=== PATIENT | female | born 1975 ===

== ENCOUNTER 2021-02-02 20:55 | Emergency (ER) | payer SELFPAY ==
[2021-02-02 23:58] LABS: Basophils # (Auto) 0.1 K/mm3 (0.0-0.1); Basophils % (Auto) 0.5 % (0.0-1.8); Eosinophils # (Auto) 0.1 K/mm3 (0.0-0.4); Eosinophils % (Auto) 0.7 % (0.0-4.3); Hematocrit 21.9 % (30.3-42.9); Hemoglobin 6.9 gm/dl (10.1-14.3); Lymphocytes # (Auto) 3.1 K/mm3 (1.2-5.4); Lymphocytes % (Auto) 26.5 % (13.4-35.0); Mean Corpuscular HGB Conc 32 % (30-34); Monocytes # (Auto) 0.8 K/mm3 (0.0-0.8); Monocytes % (Auto) 6.9 % (0.0-7.3); Platelet Count 422 K/mm3 (140-440); Red Blood Count 3.29 M/mm3 (3.65-5.03); Red Cell Distribution Width 18.2 % (13.2-15.2)
[2021-02-02 23:59] LABS: Mean Corpuscular Volume 67 fl (79-97)
[2021-02-03 00:11] LABS: Blood Urea Nitrogen 7 mg/dL (7-17); Calcium 8.4 mg/dL (8.4-10.2); Hemolysis Index 0
[2021-02-03 00:41] LABS: BUN/Creatinine Ratio 12
--- NOTE | 2021-02-03 06:38 | Emergency Department Report ---
ED Female HPI - General Chief complaint: Vaginal Bleeding Stated complaint: HEAVY BLEEDING Time Seen by Provider: 02/03/21 06:09 Source: patient Mode of arrival: Ambulatory Limitations: No Limitations - History of Present Illness Initial comments: 45-year-old female presents to the hospital complaining of vaginal bleeding x2 weeks. She uses approximately 10 pads per day. She has had intermittent back pain. Complains of mild dizziness without dyspnea on exertion. She has a history of iron deficiency anemia but noncompliant with iron tablets because they had made her vomit in the past. Denies previous history of blood transfusion or known fibroids. MANNEQUIN MOUNTER: "practice across the street" name unknown - Related Data Previous Rx's Medication Instructions Recorded Last Taken Type Docusate Sodium [Colace] 100 mg PO BID PRN #20 capsule 02/03/21 Unknown Rx Ferrous Sulfate [Ferrous Sulfate 324 mg PO DAILY #20 tablet. 02/03/21 Unknown Rx 324 MG] Ibuprofen [Motrin] 800 mg PO Q8HR PRN #20 tablet 02/03/21 Unknown Rx Ondansetron [Zofran Odt] 4 mg PO Q8HR PRN #20 tab.rapdis 02/03/21 Unknown Rx medroxyPROGESTERone ACETATE 10 mg PO DAILY #10 tablet 02/03/21 Unknown Rx [Provera] Allergies Allergy/AdvReac Type Severity Reaction Status Date / Time No Known Allergies Allergy Verified 02/02/21 22:00 ED Review of Systems ROS: Stated complaint: HEAVY BLEEDING Other details as noted in HPI Comment: All other systems reviewed and negative ED Past Medical Hx - Past Medical History Previous Medical History?: No - Surgical History Past Surgical History?: No - Social History Smoking Status: Never Smoker Substance Use Type: None - Medications Home Medications: Home Medications Medication Instructions Recorded Confirmed Last Taken Type Docusate Sodium [Colace] 100 mg PO BID PRN #20 capsule 02/03/21 Unknown Rx Ferrous Sulfate [Ferrous Sulfate 324 mg PO DAILY #20 tablet. 02/03/21 Unknown Rx 324 MG] Ibuprofen [Motrin] 800 mg PO Q8HR PRN #20 tablet 02/03/21 Unknown Rx Ondansetron [Zofran Odt] 4 mg PO Q8HR PRN #20 tab.rapdis 02/03/21 Unknown Rx medroxyPROGESTERone ACETATE 10 mg PO DAILY #10 tablet 02/03/21 Unknown Rx [Provera] ED Physical Exam - General Limitations: No Limitations - Other Other exam information: General: No acute distress Head: Atraumatic Eyes: normal appearance ENT: Moist mucous membranes Neck: Normal appearance, no midline tenderness Chest: Clear to auscultation bilaterally CV: Regular rate and rhythm Abdomen: Soft, normal bowel sounds, enlarged uterus, mildly tender, no rebound or guarding pelvis: mild uterine tenderness,no cmt, no cervical lesions aprox 10ml blood in vault, minimal active bleeding Back: Normal inspection Extremity: Normal inspection, full range of motion Neuro: Alert O x 3, no facial asymmetry, speech clear, no gross motor sensory deficit Psych: Appropriate behavior Skin: No rash ED Course Vital Signs 02/02/21 02/03/21 02/03/21 21:59 04:13 04:42 Temperature 98.4 F 98.2 F Pulse Rate 84 81 77 Respiratory 16 17 Rate Blood Pressure 155/83 162/87 Blood Pressure 155/84 [Right] O2 Sat by Pulse 98 100 100 Oximetry 02/03/21 02/03/21 02/03/21 04:46 04:49 08:41 Temperature 99.2 F Pulse Rate 76 88 Respiratory 26 H 18 Rate Blood Pressure 162/87 133/80 Blood Pressure [Right] O2 Sat by Pulse 100 100 100 Oximetry 02/03/21 02/03/21 02/03/21 08:43 08:57 08:58 Temperature 99.3 F 99.4 F Pulse Rate 85 87 80 Respiratory 18 19 18 Rate Blood Pressure 131/88 131/88 123/88 Blood Pressure [Right] O2 Sat by Pulse 100 100 100 Oximetry 02/03/21 02/03/21 02/03/21 09:28 09:58 10:09 Temperature 98.9 F 98.7 F Pulse Rate 81 81 81 Respiratory 19 19 19 Rate Blood Pressure 145/92 129/88 Blood Pressure 128/81 [Right] O2 Sat by Pulse 100 100 100 Oximetry 02/03/21 02/03/21 11:01 12:26 Temperature 98.7 F Pulse Rate 88 81 Respiratory 19 19 Rate Blood Pressure 122/81 Blood Pressure 125/81 [Right] O2 Sat by Pulse 100 100 Oximetry - Consultations Consultation #1: 02/03/21 07:00 Case d/W Dr Farnsworth who agrees with transfusion, provera, iron, and outpt follow up. ED Medical Decision Making - Lab Data Result diagrams: 02/02/21 22:46 02/02/21 22:46 Lab Results 02/02/21 02/02/21 02/03/21 Range/Units 22:46 22:46 01:54 WBC 11.6 H (4.5-11.0) K/mm3 RBC 3.29 L (3.65-5.03) M/mm3 Hgb 6.9 L (10.1-14.3) gm/dl Hct 21.9 L (30.3-42.9) % MCV 67 L (79-97) fl MCH 21 L (28-32) pg MCHC 32 (30-34) % RDW 18.2 H (13.2-15.2) % Plt Count 422 (140-440) K/mm3 Lymph % (Auto) 26.5 (13.4-35.0) % Scott % (Auto) 6.9 (0.0-7.3) % Eos % (Auto) 0.7 (0.0-4.3) % Baso % (Auto) 0.5 (0.0-1.8) % Lymph # (Auto) 3.1 (1.2-5.4) K/mm3 Scott # (Auto) 0.8 (0.0-0.8) K/mm3 Eos # (Auto) 0.1 (0.0-0.4) K/mm3 Baso # (Auto) 0.1 (0.0-0.1) K/mm3 Seg Neutrophils % 65.4 (40.0-70.0) % Seg Neutrophils # 7.6 (1.8-7.7) K/mm3 Sodium 137 (137-145) mmol/L Potassium 4.6 (3.6-5.0) mmol/L Chloride 105.5 (98-107) mmol/L Carbon Dioxide 22 (22-30) mmol/L Anion Gap 14 mmol/L BUN 7 (7-17) mg/dL Creatinine 0.6 (0.6-1.2) mg/dL Estimated GFR > 60 ml/min BUN/Creatinine Ratio 12 % Glucose 90 (65-100) mg/dL Calcium 8.4 (8.4-10.2) mg/dL HCG, Quant < 2 (0-4) mIU/mL Blood Type Antibody Screen Crossmatch 02/03/21 Range/Units 01:54 WBC (4.5-11.0) K/mm3 RBC (3.65-5.03) M/mm3 Hgb (10.1-14.3) gm/dl Hct (30.3-42.9) % MCV (79-97) fl MCH (28-32) pg MCHC (30-34) % RDW (13.2-15.2) % Plt Count (140-440) K/mm3 Lymph % (Auto) (13.4-35.0) % Scott % (Auto) (0.0-7.3) % Eos % (Auto) (0.0-4.3) % Baso % (Auto) (0.0-1.8) % Lymph # (Auto) (1.2-5.4) K/mm3 Scott # (Auto) (0.0-0.8) K/mm3 Eos # (Auto) (0.0-0.4) K/mm3 Baso # (Auto) (0.0-0.1) K/mm3 Seg Neutrophils % (40.0-70.0) % Seg Neutrophils # (1.8-7.7) K/mm3 Sodium (137-145) mmol/L Potassium (3.6-5.0) mmol/L Chloride (98-107) mmol/L Carbon Dioxide (22-30) mmol/L Anion Gap mmol/L BUN (7-17) mg/dL Creatinine (0.6-1.2) mg/dL Estimated GFR ml/min BUN/Creatinine Ratio % Glucose (65-100) mg/dL Calcium (8.4-10.2) mg/dL HCG, Quant (0-4) mIU/mL Blood Type O POSITIVE Antibody Screen Negative Crossmatch See Detail - Radiology Data Radiology results: report reviewed ULTRASOUND PELVIS COMPLETE ULTRASOUND TRANSVAGINAL INDICATION / CLINICAL INFORMATION: HEAVY VAGINAL BLEEDING. TECHNIQUE: Transabdominal and Transvaginal. Duplex Color Doppler used: Yes. COMPARISON: None available FINDINGS: UTERUS: Retroflexed - Appearance (if present): No significant abnormality. - Size in cm (if present): 8.1 x 5.6 x 5.7. - Endometrial Complex (if present): No significant abnormality.. Thickness in cm (if measured) = 0.7 - Mass lesions: None. - Additional findings: None. RIGHT ADNEXA: No significant ovarian cyst or mass. Normal color Doppler blood flow. LEFT ADNEXA: A 1.2 x 0.5 x 0.6 cm left ovarian cyst is identified, simple in appearance. Normal color Doppler blood flow. URINARY BLADDER: No significant abnormality. FREE FLUID: Trace free pelvic fluid is noted. ADDITIONAL FINDINGS: None. IMPRESSION: Left ovarian cyst as described. - Medical Decision Making Translation line used to explain patient's results, blood transfusion consent, diagnosis, and plan for follow-up. It was explained that patient has an ovarian cyst which requires EDUCATION AND DEVELOPMENT MANAGER follow-up, otherwise ultrasound is unremarkable, patient will be started on Provera which may also increase risk of blood clots particularly in smokers, and discharge planning meds. Patient was provided opportunity to ask questions and all questions were answered using translation line Patient completed 1 unit of PRBCs and observed for 1 hour without transfusion reaction was subsequently discharged. Critical Care Time: Yes Critical care time in (mins) excluding proc time.: 35 Critical care attestation.: If time is entered above; I have spent that time in minutes in the direct care of this critically ill patient, excluding procedure time. ED Disposition Clinical Impression: Vaginal bleeding, Left ovarian cyst, Encounter for blood transfusion, Symptomatic anemia Disposition: - TO HOME OR SELFCARE Is pt being admited?: No Instructions: Abnormal Uterine Bleeding, Ovarian Cyst, [id number], Blood Transfusion, Adult, Care After, [id number] Additional Instructions: Take the medication as prescribed. Follow-up with your doctor or doctor/clinic provided. Return if symptoms worsen as indicated by your discharge instructions. [place] el medicamento segn lo prescrito. Seguimiento con self mdico o mdico / clnica proporcionada. Regrese si los sntomas empeoran segn lo indicado en jorge instrucciones de crystal. Prescriptions: Docusate Sodium [Colace] 100 mg PO BID PRN #20 capsule PRN Reason: Constipation Ferrous Sulfate [Ferrous Sulfate 324 MG] 324 mg PO DAILY #20 tablet. Ibuprofen [Motrin] 800 mg PO Q8HR PRN #20 tablet PRN Reason: Pain , Severe (7-10) medroxyPROGESTERone ACETATE [Provera] 10 mg PO DAILY #10 tablet Ondansetron [Zofran Odt] 4 mg PO Q8HR PRN #20 tab.rapdis PRN Reason: Nausea And Vomiting Referrals: SATHISH FARNSWORTH MD [Staff Physician] - 3-5 Days Time of Disposition: 12:20 Print Language: UZBEK
[2021-02-03] MEDS ORDERED: SODIUM CHLORIDE 0.9% 500 ML 500 ML IV ONE (07:01)
--- NOTE | 2021-02-03 07:40 | Ultrasound Report ---
ULTRASOUND PELVIS COMPLETE ULTRASOUND TRANSVAGINAL INDICATION / CLINICAL INFORMATION: HEAVY VAGINAL BLEEDING. TECHNIQUE: Transabdominal and Transvaginal. Duplex Color Doppler used: Yes. COMPARISON: None available FINDINGS: UTERUS: Retroflexed - Appearance (if present): No significant abnormality. - Size in cm (if present): 8.1 x 5.6 x 5.7. - Endometrial Complex (if present): No significant abnormality.. Thickness in cm (if measured) = 0.7 - Mass lesions: None. - Additional findings: None. RIGHT ADNEXA: No significant ovarian cyst or mass. Normal color Doppler blood flow. LEFT ADNEXA: A 1.2 x 0.5 x 0.6 cm left ovarian cyst is identified, simple in appearance. Normal color Doppler blood flow. URINARY BLADDER: No significant abnormality. FREE FLUID: Trace free pelvic fluid is noted. ADDITIONAL FINDINGS: None. IMPRESSION: Left ovarian cyst as described. Signer Name: Chandu Lau Jr, MD Signed: 02/03/2021 7:35 AM Workstation Name: [id number]
[2021-02-03 12:27] VITALS: BP 125/81
== END 2021-02-03 12:43 | disposition home or self-care (01) ==
LOC: ED 20:55
DX: N93.9 Abnormal uterine and vaginal bleeding, unspecified (principal); N83.202 Unspecified ovarian cyst, left side; D64.9 Anemia, unspecified; Z51.89 Encounter for other specified aftercare; Z79.899 Other long term (current) drug therapy
CPT/HCPCS: 36415; 36430; 76830; 76856; 80048; 84702; 85025; 86850; 86900; 86901; 86920; 99284; J7040; P9016